=== PATIENT | female | born 1940 | race Caucasian/White ===

== ENCOUNTER 2017-07-23 20:20 | Emergency (ER) | payer MEDICARE, BC ==
[~2017-07-23] VITALS: Ht 167.6 cm; Wt 61.0 kg
[2017-07-23 20:54] LABS: HEMATOCRIT 42.6 % (37.0-47.0); HEMOGLOBIN 13.7 g/dl (12.0-16.0); IMMATURE GRANULOCYTES 0.4 % (0.0-1.0); MEAN CELL VOLUME 96.6 fL CALC (80.0-100.0); MEAN CORPUSCULAR HGB 31.1 pG CALC (26.0-32.0); MEAN CORPUSCULAR HGB CONC 32.2 g/L CALC (32.0-36.0); NEUT# 4.11 thou/uL (2.00-7.15); RED BLOOD COUNT 4.41 mill/uL (4.20-5.60); RED CELL DISTRI WIDTH 12.3 % (11.5-15.5)
[2017-07-23 21:06] LABS: ALBUMIN 4.7 g/dL (3.2-5.0); ALKALINE PHOSPHATASE 54 u/l (38-126); ANION GAP 17 (6-22 (CALC)); BILIRUBIN, TOTAL 0.3 mg/dL (0.0-1.4); BUN 17 mg/dL (8-23); BUN/CREATININE RATIO 22 (12-20 (CALC)); CALCIUM 10.1 mg/dL (8.4-10.2); CARBON DIOXIDE 23 mmol/l (22-30); CHLORIDE 105 mmol/l (95-108); CREATININE 0.8 mg/dL (0.5-1.0); GFR > 60 ML/MIN (>=60 (CALC)); GFR FOR AFR.AMER. > 60 ML/MIN (>=60 (CALC)); GLUCOSE 97 mg/dL (82-115); LIPASE 189 u/l (23-300); SGOT/AST 22 u/l (9-36); SGPT/ALT 22 u/l (11-66); SODIUM 141 mmol/l (137-146); TOTAL PROTEIN 7.6 g/dL (6.3-8.2)
[2017-07-23 21:18] LABS: MYOGLOBIN 20 ng/mL (0 - 62)
[2017-07-23] MEDS ORDERED: PRILOSEC20 MG PO (21:22)
[2017-07-23] MEDS ORDERED: TRAZODONE100 MG PO (21:23)
[2017-07-23] MEDS ORDERED: FOSAMAX PLUS1 TAB PO (21:24)
[2017-07-23] MEDS ORDERED: PEPCID AC10 MG PO (21:24)
[2017-07-23] MEDS ORDERED: CATAPRES0.1 MG PO (22:11)
[2017-07-23 22:30] VITALS: BP 159/70
== END 2017-07-23 22:30 | disposition home or self-care (01) ==
LOC: ED 20:20
PROVIDERS: Emergency Medicine
DX: R07.9 Chest pain, unspecified (principal); I10 Essential (primary) hypertension